=== PATIENT | female | born 1985 | race African-American/Black ===

== ENCOUNTER 2017-09-02 20:54 | Emergency (ER) | payer OTHER, SELFPAY ==
[2017-09-02] MEDS ORDERED: Ibuprofen 800 MG TAB ONE (21:51)
[2017-09-02] MEDS ORDERED: cloNIDine 0.1 MG TAB ONE (21:51)
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
== END 2017-09-03 00:56 | disposition home or self-care (01) ==
LOC: ERS 20:54
DX: S00.83XA Contusion of other part of head, initial encounter (principal); S50.312A Abrasion of left elbow, initial encounter; I10 Essential (primary) hypertension; Y04.0XXA Assault by unarmed brawl or fight, initial encounter